=== PATIENT | male | born 1960 | race Caucasian/White ===

== ENCOUNTER 2017-09-27 18:11 | Emergency (ER) | payer BC ==
[~2017-09-27] VITALS: Ht 180.3 cm; Wt 99.8 kg
[2017-09-27 18:16] VITALS: Ht 180.3 cm; Wt 99.8 kg
[2017-09-27 22:43] VITALS: BP 143/85
== END 2017-09-27 23:01 | disposition home or self-care (01) ==
LOC: ED 18:11
DX: S39.012A Strain of muscle, fascia and tendon of lower back, initial encounter (principal); E78.00 Pure hypercholesterolemia, unspecified; X50.9XXA Other and unspecified overexertion or strenuous movements or postures, initial encounter; Y93.89 Activity, other specified; Y92.89 Other specified places as the place of occurrence of the external cause; Y99.8 Other external cause status
CPT/HCPCS: J1885; J2270; J3010